=== PATIENT | male | born 1955 | race Caucasian/White ===

== ENCOUNTER 2017-10-22 23:22 | Inpatient (IN) | payer MEDICARE, OTHER ==
[~2017-10-22] VITALS: Ht 182.9 cm; Wt 67.6 kg
--- NOTE | 2017-10-22 22:45 | NUR ---
VETERAN APPEALS REVIEWER RCD PT DIRECT ADMIT FROM [facility]; PT A/O x4. NSR ON MONITOR. ELEVATED SBP. PT C/O HEADACHE 10/23. CALLED DR SWEENEY FOR ADMISSION ORDERS.
[2017-10-22 22:55] VITALS: BP 178/137
[2017-10-22 22:59] VITALS: BP 147/102
[2017-10-22 23:30] VITALS: BP 152/98
[2017-10-23] VITALS (43 sets, daily range): BP systolic 111–167; BP diastolic 40–116
[2017-10-23] MEDS ORDERED: ONDANSETRON HCL/PF 4 MG/2 ML VIAL IVP PRN
[2017-10-23] MEDS ORDERED: ACETAMINOPHEN 325 MG TABLET PO PRN
[2017-10-23] MEDS ORDERED: METO25TA6 PO (00:13)
[2017-10-23] MEDS ORDERED: CLOP75TA15 PO (00:13)
[2017-10-23] MEDS: BLOOD SUGAR DIAGNOSTIC 1 EACH STRIP IN SCH ×4 (00:35→12:17)
[2017-10-23] MEDS: MORPHINE SULFATE INJ 4 MG/ML DISP.SYRIN IV PRN ×6 (00:37→20:48)
[2017-10-23 00:40] LABS: BASOPHILS % (AUTO) 0.3 % (0.0-2.0); HEMATOCRIT 35 % (39-51); LYMPHOCYTES % (AUTO) 17.7 % (20.0-44.0); MEAN CORPUSCULAR HGB CONC 35 g/dl (31.0-36.0); MEAN CORPUSCULAR VOLUME 105 fL (80-96); MONOCYTES # (AUTO) 0.6 /CMM (0.1-1.30); MONOCYTES % (AUTO) 9.5 % (2.0-12.0); NEUTROPHILS # (AUTO) 4.2 /CMM (1.8-8.9); NEUTROPHILS % (AUTO) 71.5 % (43.0-81.0); PLATELET COUNT (AUTO) 102 /CMM (150-450); RDW COEFFICIENT OF VARIATION 14.4 (11.5-15.0); WHITE BLOOD COUNT (AUTO) 5.9 K/uL (4.3-11.0)
[2017-10-23 00:47] LABS: CALCIUM, SERUM 8.9 mg/dL (8.5-10.1); CREATININE 0.8 mg/dL (0.6-1.3); POTASSIUM 3.5 mmol/L (3.5-5.1)
[2017-10-23 00:48] LABS: INR 0.98 (0.87-1.13)
--- NOTE | 2017-10-23 01:00 | NUR ---
CRADLE SLIDE MAKER PT TAKEN FOR HEAD CT. PT REQUESTED MORPHINE FOR HEADACHE 10/23; MEDICATED ORDERED. CONTINUE TO MONITOR.
[2017-10-23 01:04] LABS: THYROID STIMULATING HORMONE 0.653 uIU/mL (0.358-3.74)
--- NOTE | 2017-10-23 04:40 | NUR ---
OIL AND GAS SPECIALIST PT C/O HEADACHE 12/23; REQUESTED MORPHINE FOR PAIN. MEDICATED ORDERED.
[2017-10-23 06:29] LABS: ABG BASE EXCESS -0.1 mmol/L; ABG OXYGEN SATURATION 95.2 % (92.0-98.5); ABG PCO2 33.8 mmHg (35.0-45.0); ABG PH 7.455 (7.350-7.450); ABG PO2 83.7 mmHg (75.0-100.0); AaDO2 104.9 mmHg; COHb 0.9 % (0.5-1.5); MetHb 0.4 % (0.0-1.5); SITE, ABG Right Radial; VENT MODE, BG NC 3L
[2017-10-23] MEDS: PANTOPRAZOLE 40 MG TABLET.DR PO SCH (07:30)
--- NOTE | 2017-10-23 07:30 | NUR ---
RECEIVED PATIENT A/OX4 DENIES SOB, DIFFICULTY BREATHING OR PAIN. NO DEFICITS NOTED. SPEECH CLEAR, STRENGTH EQUAL ALL EXTREMITIES, PUPILS BRIGIDA, NO DROOPING OF FACIAL FEATURES. PATIENT PASSED NURSING SWALLOW EVAL AND ORDER ALREADY ADDED BY DR SWEENEY. PATIENT STATES CONSTANT SLIGHT HEADACHE AND RIGHT FOOT/TOES PAIN IN WHICH MORPHINE IS BEING GIVEN PRN. PATIENT IS SHAKY POSSIBLY DUE TO WITHDRAWALS; ON SEIZURE PRECAUTIONS; WILL GIVE ATIVAN PRN. PER RN PATIENT BP IS TO REMAIN ELEVATED PER MD; WILL FOLLOW UP FOR PARAMETERS. IV SITES CLEAN DRY AND INTACT SALINE LOCKED. ALL SAFETY PRECAUTIONS IN PLACE. HOB ELEVATED. ALL NEEDS ASSESSED AND MET. WILL ROUND PRN
[2017-10-23] MEDS: LORAZEPAM INJ 2 MG/ML VIAL IV PRN ×4 (08:53→22:23)
--- NOTE | 2017-10-23 09:13 | NUR ---
SPEECH THERAPIST AT BEDSIDE FOR EVAL. DR TOUSSAINT AT BEDSIDE FOR CONSULTATION
--- NOTE | 2017-10-23 10:44 | NUR ---
PATIENT RESTING COMFORTABLY. LESS SHAKINESS NOTED. PATIENT STATES PAIN CONTROLLED WITH PRN MEDICATIONS. ALL NEEDS MET. CALL LIGHT IN REACH. SAFETY PRECAUTIONS IN PLACE
--- NOTE | 2017-10-23 16:50 | NUR ---
BELLE RODRIGUEZ AT BEDSIDE. OK TO DC ACCU CHECKS. I CALLED DR NG TO FOLLOW UP ON CONSULT. PER DR NG IF CT HERE NEGATIVE OK DC. NOTIFIED JENN[facility]ER AND THEY WILL BE IN COMMUNICATION. ATTEMPTING TO UPLOAD CT HEAD FROM [facility] AND [place]. SPOKE WITH RADIOLOGY AND ZOË CAN POSSIBLY DO THIS; THEY WILL F/U. JENNIFER AWARE OF MED RECON READY AND OF PATIENT RIGHT FOOT TOES BROKEN. FOR NOW PATIENT NON WEIGHT BEARING RIGHT LE.
[2017-10-23 17:01] LABS: APPEARANCE,URINE SL CLOUDY (CLEAR); BILIRUBIN,URINE 2+ (NEGATIVE); BLOOD, URINE NEGATIVE Ery/uL (NEGATIVE); COLOR,URINE ORANGE (YELLOW); KETONES,URINE 1+ (NEGATIVE); LEUKOCYTE ESTERASE ,URINE NEGATIVE (NEGATIVE); NITRITE, URINE NEGATIVE (NEGATIVE); PROTEIN,URINE 1+ mg/dl (NEGATIVE); UGLUCOSE TRACE mg/dL (NEGATIVE); UROBILINOGEN,URINE >=8.0 EU/dL (0.2)
[2017-10-23] MEDS: FOLIC ACID 1 MG TABLET PO SCH (17:25)
[2017-10-23 17:26] LABS: BACTERIA,URINE Rare /HPF (None Seen); RBC,URINE 0-2 /HPF (0-2); SQUAMOUS EPITHELIAL CELL,UR Few /HPF (None Seen); WBC,URINE 0-2 /HPF (0-3)
[2017-10-23 18:10] LABS: ALBUMIN 3.7 g/dL (3.4-5.0); BILIRUBIN,DIRECT 0.4 mg/dL (0.0-0.2); BILIRUBIN,TOTAL 1.5 mg/dL (0.2-1.0); TOTAL PROTEIN, SERUM 7.2 g/dL (6.4-8.2)
[2017-10-23] MEDS: Thiamine 100 MG in IV D5W 50 ML IV SCH (18:13)
--- NOTE | 2017-10-23 19:17 | NUR ---
CARE ENDORSED TO JABIER GOINS FOR LAURE. PATIENT STABLE. VS STABLE. ALL DUE MEDS GIVEN AND ALL NEEDS MET. PATIENT RESTING COMFORTABLY. SCD'S ON AND ICE TO RIGHT FOOT. PATIENT STATES PAIN CONTROLLED WITH PRN MEDICATIONS AND NON PHARM MEASURES. PRN ATIVAN GIVEN FOR ALCOHOL WITHDRAWAL/ SHAKINESS. SAFETY PRECAUTIONS IN PLACE. CALL LIGHT IN REACH.
--- NOTE | 2017-10-23 20:00 | NUR ---
BRAKE LINING FINISHER ASBESTOS NOTES RECEIVED PTS ON BED AWAKE A/OX 4 , V/S STABLE AFEBRILE , ON R/A SATING 95-98% ALL NEEDS ATTENDED TOO CALL LIGHT WITHIN REACH ALL DUE MEDS GIVEN ORDERED KEPT PTS COMFORTABLE IN BED .WILL CONTINUE TO MONITOR PTS.
[2017-10-23] MEDS: SIMVASTATIN 40 MG TABLET PO SCH (22:22)
[2017-10-24] VITALS (25 sets, daily range): BP systolic 116–168; BP diastolic 71–134
[2017-10-24] MEDS: MORPHINE SULFATE INJ 4 MG/ML DISP.SYRIN IV PRN ×6 (01:06→22:07)
[2017-10-24] MEDS: LORAZEPAM INJ 2 MG/ML VIAL IV PRN ×2 (02:52→08:36)
[2017-10-24 04:26] LABS: BASOPHILS % (AUTO) 0.3 % (0.0-2.0); EOSINOPHILS % (AUTO) 1.7 % (0.0-6.0); HEMATOCRIT 36 % (39-51); HEMOGLOBIN 12.4 g/dL (13.5-17.5); LYMPHOCYTES # (AUTO) 1.4 /CMM (0.8-4.8); LYMPHOCYTES % (AUTO) 22.4 % (20.0-44.0); MEAN CORPUSCULAR HGB CONC 35 g/dl (31.0-36.0); MEAN CORPUSCULAR VOLUME 105 fL (80-96); MONOCYTES # (AUTO) 0.6 /CMM (0.1-1.30); MONOCYTES % (AUTO) 9.5 % (2.0-12.0); NEUTROPHILS % (AUTO) 66.1 % (43.0-81.0); PLATELET COUNT (AUTO) 98 /CMM (150-450); RDW COEFFICIENT OF VARIATION 14.3 (11.5-15.0); RED BLOOD CELL COUNT(AUTO) 3.42 MIL/uL (4.5-6.0); WHITE BLOOD COUNT (AUTO) 6.1 K/uL (4.3-11.0)
[2017-10-24 04:41] LABS: CALCIUM, SERUM 9.2 mg/dL (8.5-10.1); CREATININE 0.7 mg/dL (0.6-1.3); POTASSIUM 3.8 mmol/L (3.5-5.1)
--- NOTE | 2017-10-24 05:51 | NUR ---
agriculture instructor notes pts in bed awake a/ox4 no sob no distress noted on sr -st on the monitor , sating 96-98% on the monitor , all needs attended too call light within reach kept pts comfortable,jefferson endorse to rn day shift for continuity of care, no significance change noted.
--- NOTE | 2017-10-24 07:30 | NUR ---
RN NOTES RECEIVED PATIENT IN BED ALERT, AWAKE, ORIENTED X4 WITH BREATHING NORMAL, EVEN AND UNLABORED. NO SOB NOTED. NO ACUTE DISTRESS NOTED. TELE MONITOR REVEALS SR, HR=96. IV LFA IS PATENT AND INTACT, NO INFILTRATION NOTED. BOWEL SOUND PRESENT. PULSES PRESENT. SAFETY MEASURE OBSERVED. CALL LIGHT WITH IN REACH. WILL CONT TO MONITOR.
[2017-10-24] MEDS: PANTOPRAZOLE 40 MG TABLET.DR PO SCH (08:36)
[2017-10-24] MEDS: FOLIC ACID 1 MG TABLET PO SCH (08:36)
[2017-10-24] MEDS: Thiamine 100 MG in IV D5W 50 ML IV SCH (17:07)
--- NOTE | 2017-10-24 19:18 | NUR ---
RN NOTES PATIENT ENDORSED TO NEXT SHIFT IN STABLE CONDITION FOR CONTINUITY OF CARE.
--- NOTE | 2017-10-24 19:20 | NUR ---
ADVERTISER OPENING NOTES RECEIVED REPORT FROM HARSHAD EUGENE. PATIENT A/A/O X4, ABLE TO VERBALIZE NEEDS. BREATHING EVEN & UNLABORED & TOLERATING ROOM AIR. SATING @ 95%. ON TELE W/ SINUS RHYTHM, HR 90S. NO RESPIRATORY OR CARDIAC DISTRESS NOTED. DENIES ANY CHEST PAIN OR DISCOMFORT. RIGHT FOREARM IV #22 & LEFT FOREARM IV #20 INTACT & PATENT W/ DRESSING CDI, SALINE LOCKED. PATIENT ABLE TO USE URINAL. C/O HEADACHE W/ PAIN OF 8 OUT OF 10. PAIN MED TO BE GIVEN. DENIES ANY BLURRY VISION OR LIGHTHEADEDNESS. DENIES N/V/D. SAFETY MEASURES IN PLACE & CALL LIGHT WITHIN REACH. INSTRUCTED TO CALL FOR ASSISTANCE. WILL CONTINUE TO MONITOR CLOSELY.
[2017-10-24] MEDS: hydrALAZINE HCL IV 20 MG VIAL IV PRN (21:01)
[2017-10-24] MEDS: SIMVASTATIN 40 MG TABLET PO SCH (21:48)
--- NOTE | 2017-10-24 23:38 | NUR ---
TELE-TD/SUPERINTENDENT OPERATIONS DIVISION RECEIVED PT ACCOMPANIED BY ICU STAFF. REPORT TAKEN FROM MELANIE EUGENE. WILL CONTINUE TO MONITOR.
--- NOTE | 2017-10-24 23:40 | NUR ---
CUSTOMER SUPPORT COORDINATOR NOTES PATIENT TRANSFERRED TO [facility] ROOM 106 IN STABLE CONDITION. BEDSIDE REPORT GIVEN TO MOI HOWARD FOR LAURE.
[2017-10-25] VITALS: BP 150/108
[2017-10-25] MEDS: MORPHINE SULFATE INJ 4 MG/ML DISP.SYRIN IV PRN ×4 (02:26→22:10)
[2017-10-25 04:00] VITALS: BP 159/109
[2017-10-25 06:30] LABS: BASOPHILS % (AUTO) 0.2 % (0.0-2.0); HEMATOCRIT 36 % (39-51); HEMOGLOBIN 12.6 g/dL (13.5-17.5); LYMPHOCYTES # (AUTO) 1.1 /CMM (0.8-4.8); LYMPHOCYTES % (AUTO) 17.5 % (20.0-44.0); MEAN CORPUSCULAR HGB CONC 35 g/dl (31.0-36.0); MEAN CORPUSCULAR VOLUME 106 fL (80-96); MONOCYTES # (AUTO) 0.5 /CMM (0.1-1.30); MONOCYTES % (AUTO) 7.8 % (2.0-12.0); NEUTROPHILS # (AUTO) 4.7 /CMM (1.8-8.9); NEUTROPHILS % (AUTO) 72.5 % (43.0-81.0); PLATELET COUNT (AUTO) 101 /CMM (150-450); RDW COEFFICIENT OF VARIATION 14.5 (11.5-15.0); RED BLOOD CELL COUNT(AUTO) 3.44 MIL/uL (4.5-6.0); WHITE BLOOD COUNT (AUTO) 6.4 K/uL (4.3-11.0)
--- NOTE | 2017-10-25 07:26 | NUR ---
[facility] RN NOTE RECEIVED PATIENT IN BED , RESTING COMFORTABLY AT THIS TIME , ON TELE MONITOR SR HR 86 , BED IN LOWEST AND LOCKED POSITION NO SOB AT THIS TIME, CALL LIGHT WITHIN REACH ALL NEEDS ATTENDED
[2017-10-25 07:27] LABS: CALCIUM, SERUM 9.5 mg/dL (8.5-10.1); CREATININE 0.8 mg/dL (0.6-1.3); POTASSIUM 3.7 mmol/L (3.5-5.1)
[2017-10-25 07:54] LABS: EOSINOPHILS % (MANUAL) 1 % (0-4); LYMPHOCYTES % (MANUAL) 16 % (16-48); MONOCYTES % (MANUAL) 9 % (0-11.0); NEUTROPHILS % (MANUAL) 74 (42-76)
[2017-10-25 08:00] VITALS: BP 156/99
[2017-10-25] MEDS: FOLIC ACID 1 MG TABLET PO SCH (08:55)
[2017-10-25] MEDS: PANTOPRAZOLE 40 MG TABLET.DR PO SCH (08:55)
[2017-10-25] MEDS: THIAMINE HCL 100 MG TABLET PO SCH (11:23)
[2017-10-25 12:00] VITALS: BP 148/96
--- NOTE | 2017-10-25 12:30 | NUR ---
[facility] RN NOTE ABLE TO FEED SELF ALL NEEDS ATTENDED , NO C\O HEADACHE AT THIS TIME WILL CONT TO MONITOR CLOSELY
--- NOTE | 2017-10-25 14:57 | NUR ---
[facility] RN NOTE ABLE TO GO TO BR USING A CANE ,STAND BY ASSISTANCE PROVIDED , KEEP CLEAN DRY , NOT IN ACUTE DISTRESS
--- NOTE | 2017-10-25 15:50 | NUR ---
GURPREET RN NOTE SPOKE WITH BELLE EUGENE BALLOON ARTIST NOTIFIED THAT HDL 77, PER HOSPITAL PROTOCOL NEEDS TO ORDER STATINS STATED TTAT WILL CHECK IT OUT Addendum: 10/25/17 at 1556 by CHER CARMONA RN WRONG STATEMENT ERROR
[2017-10-25 16:00] VITALS: BP 158/100
--- NOTE | 2017-10-25 17:57 | NUR ---
[facility] RN NOTE PT AT BEDSIDE AMBULATED PATIENT
--- NOTE | 2017-10-25 18:50 | NUR ---
[facility] RN NOTE C\O HEADACHE 7\10 ,MORPHINE 2MG IVP GIVEN ,BP 148/96 ,SAT 97%
[2017-10-25 20:00] VITALS: BP 145/103
--- NOTE | 2017-10-25 20:00 | NUR ---
Received report patient A/O x 4.Moves all extremities.VS taken and recorded.Tele SR no ectopies noted. Respiration even and unlabored.Denies any discomfort at present.Call light at bedside instructed to call for assistance.Verbalized understanding.
[2017-10-25] MEDS: SIMVASTATIN 40 MG TABLET PO SCH (21:53)
[2017-10-25] MEDS: hydrALAZINE HCL IV 20 MG VIAL IV PRN (22:09)
[2017-10-26] VITALS: BP 148/99
[2017-10-26] MEDS: MORPHINE SULFATE INJ 4 MG/ML DISP.SYRIN IV PRN ×2 (02:07→06:28)
[2017-10-26 04:00] VITALS: BP_SYST 137; BP_SYST 153; BP_DIAS 86; BP_DIAS 98
[2017-10-26 06:18] LABS: BASOPHILS % (AUTO) 0.2 % (0.0-2.0); EOSINOPHILS % (AUTO) 1.9 % (0.0-6.0); HEMATOCRIT 38 % (39-51); HEMOGLOBIN 12.9 g/dL (13.5-17.5); LYMPHOCYTES # (AUTO) 1.2 /CMM (0.8-4.8); LYMPHOCYTES % (AUTO) 20.9 % (20.0-44.0); MEAN CORPUSCULAR HGB CONC 34 g/dl (31.0-36.0); MEAN CORPUSCULAR VOLUME 106 fL (80-96); MONOCYTES # (AUTO) 0.6 /CMM (0.1-1.30); MONOCYTES % (AUTO) 9.6 % (2.0-12.0); NEUTROPHILS % (AUTO) 67.4 % (43.0-81.0); PLATELET COUNT (AUTO) 117 /CMM (150-450); RDW COEFFICIENT OF VARIATION 13.9 (11.5-15.0); RED BLOOD CELL COUNT(AUTO) 3.58 MIL/uL (4.5-6.0); WHITE BLOOD COUNT (AUTO) 5.9 K/uL (4.3-11.0)
--- NOTE | 2017-10-26 06:30 | NUR ---
Patient complaints of headache 3X during the shift and was medicated with morphine as PRN. No changes on neuro status.VS stable.SR/ST.Safety measures maintained.All needs attended.
[2017-10-26 06:33] LABS: CALCIUM, SERUM 9.8 mg/dL (8.5-10.1); CREATININE 0.7 mg/dL (0.6-1.3); POTASSIUM 4.2 mmol/L (3.5-5.1)
--- NOTE | 2017-10-26 07:30 | NUR ---
[facility] RN AM NOTE RECEIVED PATIENT IN BED , RESTING COMFORTABLY AT THIS TIME , ON RA, NO SOB, ON TELE MONITOR SR HR 96 , RFA g22, FLUSHES WELL, SITE CLEAR, REGULAR DIET, DENIES PAIN , USES URINAL, NEURO CHECK DONE, BED IN LOWEST AND LOCKED POSITION, CALL LIGHT WITHIN REACH WILL CONTINUE TO MONITOR.
[2017-10-26 08:00] VITALS: BP 135/96
[2017-10-26] MEDS: FOLIC ACID 1 MG TABLET PO SCH (08:40)
[2017-10-26] MEDS: PANTOPRAZOLE 40 MG TABLET.DR PO SCH (08:40)
[2017-10-26] MEDS: THIAMINE HCL 100 MG TABLET PO SCH (08:40)
--- NOTE | 2017-10-26 09:30 | NUR ---
[facility] RN NOTES ADMINISTERED DUE MEDS.
[2017-10-26 10:12] LABS: LYMPHOCYTES % (MANUAL) 17 % (16-48); MONOCYTES % (MANUAL) 7 % (0-11.0); NEUTROPHILS % (MANUAL) 76 (42-76)
[2017-10-26] MEDS ORDERED: MORPHINE SULFATE INJ 4 MG/ML DISP.SYRIN IV PRN (11:00)
[2017-10-26] MEDS: HYDROCODONE/APAP 10/325MG 1 EA TABLET PO PRN ×3 (11:12→19:51)
[2017-10-26 12:00] VITALS: BP 127/98
[2017-10-26 16:00] VITALS: BP 121/84
--- NOTE | 2017-10-26 19:53 | NUR ---
[facility] RN NOTE PT IN BED AWAKE. A/O X 4, NO SOB NOTED. C/O PAIN LT LEG, AND TEMPORAL /10, NORCO 10/325 MG PO GIVEN. ON TELE SR HR 96. RFA #22 G S/L INTACT AND PATENT. SIDE RAILS UP X 2 AND CALL LIGHT WITHIN REACH. VSS. CONTINUE TO MONITOR HIM. CANE AT BED SIDE. REMINDED PT TO USE CALL LIGHT IF NEEDED ANY HELP.
[2017-10-26 20:00] VITALS: BP 126/88
[2017-10-26] MEDS: SIMVASTATIN 40 MG TABLET PO SCH (21:42)
[2017-10-27] VITALS: BP 126/92
[2017-10-27] MEDS: HYDROCODONE/APAP 5/325MG 1 EACH TABLET PO PRN ×2 (00:24→05:00)
[2017-10-27 04:00] VITALS: BP 136/87
--- NOTE | 2017-10-27 06:20 | NUR ---
[facility] RN NOTE PT IN BED AWAKE. NO DISTRESS OR DISCOMFORT NOTED. PAIN MEDS GIVEN MULTIPLE TIMES DUE TO PAIN IN LT LOWER EXT'S. NO CHANGES IN NEURO DURING THE SHIFT. ALL NEEDS ATTENDED. SIDE RAILS UP X 2 AND CALL LIGHT WITHIN REACH. WILL ENDORSE TO DAY SHIFT NURSE FOR CONTINUE TO CARE.
[2017-10-27 06:43] LABS: BASOPHILS % (AUTO) 0.2 % (0.0-2.0); EOSINOPHILS % (AUTO) 3.1 % (0.0-6.0); HEMATOCRIT 34 % (39-51); HEMOGLOBIN 11.7 g/dL (13.5-17.5); LYMPHOCYTES # (AUTO) 1.2 /CMM (0.8-4.8); LYMPHOCYTES % (AUTO) 25.6 % (20.0-44.0); MEAN CORPUSCULAR HGB CONC 35 g/dl (31.0-36.0); MEAN CORPUSCULAR VOLUME 106 fL (80-96); MONOCYTES # (AUTO) 0.7 /CMM (0.1-1.30); MONOCYTES % (AUTO) 14.1 % (2.0-12.0); NEUTROPHILS # (AUTO) 2.6 /CMM (1.8-8.9); PLATELET COUNT (AUTO) 126 /CMM (150-450); RDW COEFFICIENT OF VARIATION 13.8 (11.5-15.0); RED BLOOD CELL COUNT(AUTO) 3.19 MIL/uL (4.5-6.0); WHITE BLOOD COUNT (AUTO) 4.6 K/uL (4.3-11.0)
[2017-10-27 06:56] LABS: CALCIUM, SERUM 9.2 mg/dL (8.5-10.1); CREATININE 0.8 mg/dL (0.6-1.3); POTASSIUM 3.9 mmol/L (3.5-5.1)
[2017-10-27] MEDS: PANTOPRAZOLE 40 MG TABLET.DR PO SCH (07:37)
--- NOTE | 2017-10-27 07:45 | NUR ---
RN NOTE RECEIVED PATIENT IN BED, ALERT AND ORIENTED X4, HE IS ABLE TO MAKE THINGS KNOWN AND VERBALIZE NEEDS. PATIENT IS ABLE TO AMBULATE WITH ASSIST AND ASSISTIVE DEVICE. BREATHING EVEN AND UNLABORED WITH NO DISTRESS NOTED. ON STEWARD/STEWARDESS SMOKE ROOM OF SINUS RHYTHM HR OF 76, RIGHT FA IV SITE INTACT AND PATENT. DENIES ANY PAIN AT THIS TIME. BED LOCK AND LOW POSITION. PLACED CALL LIGHT WITHIN REACH. WILL CONTINUE TO MONITOR.
[2017-10-27 08:00] VITALS: BP 143/95
[2017-10-27] MEDS: FOLIC ACID 1 MG TABLET PO SCH (08:32)
[2017-10-27] MEDS: THIAMINE HCL 100 MG TABLET PO SCH (08:32)
[2017-10-27] MEDS: HYDROCODONE/APAP 10/325MG 1 EA TABLET PO PRN ×3 (10:00→22:48)
[2017-10-27 10:38] LABS: EOSINOPHILS % (MANUAL) 1 % (0-4); LYMPHOCYTES % (MANUAL) 30 % (16-48); MONOCYTES % (MANUAL) 7 % (0-11.0); NEUTROPHILS % (MANUAL) 62 (42-76)
[2017-10-27 12:00] VITALS: BP 152/104
[2017-10-27] MEDS: hydrALAZINE HCL IV 20 MG VIAL IV PRN (15:42)
--- NOTE | 2017-10-27 15:45 | NUR ---
RN NOTE PATIENT NOTED WITH ELEVATED B/P 162/104, PRN HYDRALAZINE GIVEN. WILL CONTINUE MONITOR AND RECHECK B/P
[2017-10-27 16:00] VITALS: BP 158/98
--- NOTE | 2017-10-27 16:15 | NUR ---
RN NOTE RECHECKED PATIENT B/P 133/72, PRN HYDRALAZINE WAS EFFECTIVE, WILL CONTINUE TO MONITOR.
[2017-10-27 20:00] VITALS: BP 148/91
[2017-10-27] MEDS: SIMVASTATIN 40 MG TABLET PO SCH (22:06)
[2017-10-28] VITALS: BP 124/87
[2017-10-28 00:07] VITALS: BP 124/87
[2017-10-28 04:00] VITALS: BP 125/86
[2017-10-28] MEDS: HYDROCODONE/APAP 10/325MG 1 EA TABLET PO PRN ×4 (04:09→16:36)
[2017-10-28 07:04] LABS: CALCIUM, SERUM 9.3 mg/dL (8.5-10.1); CREATININE 0.7 mg/dL (0.6-1.3); POTASSIUM 4.6 mmol/L (3.5-5.1)
--- NOTE | 2017-10-28 07:10 | NUR ---
RN INITIAL NOTES: Rec'd pt awake on bed, A/O x 3-4, c/o headache 5/10, denies any weakness. On room air, no SOB. On telemonitor, ST w/ HR 100 bpm. Has RFA G22, SL, flushing well, no s/sx of infection/infiltration noted. Provided comfort & safety measures (ambulating aid placed w/in reach). Reminded to use FWW/cane when ambulating, verbalized understanding. Bed kept low & in locked pos. Call light placed w/in reach. Will continue to monitor & attend pt needs.
[2017-10-28 07:14] LABS: BASOPHILS % (AUTO) 0.3 % (0.0-2.0); EOSINOPHILS % (AUTO) 2.5 % (0.0-6.0); HEMATOCRIT 34 % (39-51); LYMPHOCYTES # (AUTO) 1.1 /CMM (0.8-4.8); LYMPHOCYTES % (AUTO) 20.5 % (20.0-44.0); MEAN CORPUSCULAR HGB CONC 35 g/dl (31.0-36.0); MEAN CORPUSCULAR VOLUME 105 fL (80-96); MONOCYTES % (AUTO) 17.2 % (2.0-12.0); NEUTROPHILS # (AUTO) 3.3 /CMM (1.8-8.9); NEUTROPHILS % (AUTO) 59.5 % (43.0-81.0); PLATELET COUNT (AUTO) 155 /CMM (150-450); RDW COEFFICIENT OF VARIATION 14.1 (11.5-15.0); RED BLOOD CELL COUNT(AUTO) 3.28 MIL/uL (4.5-6.0); WHITE BLOOD COUNT (AUTO) 5.5 K/uL (4.3-11.0)
[2017-10-28] MEDS: PANTOPRAZOLE 40 MG TABLET.DR PO SCH (07:59)
[2017-10-28 08:00] VITALS: BP 141/99
[2017-10-28] MEDS: THIAMINE HCL 100 MG TABLET PO SCH (08:22)
[2017-10-28] MEDS: FOLIC ACID 1 MG TABLET PO SCH (08:22)
[2017-10-28 10:11] LABS: EOSINOPHILS % (MANUAL) 3 % (0-4); LYMPHOCYTES % (MANUAL) 28 % (16-48); MONOCYTES % (MANUAL) 9 % (0-11.0); NEUTROPHILS % (MANUAL) 60 (42-76)
--- NOTE | 2017-10-28 12:30 | NUR ---
RN NOTES: Pt requesting to smoke outside facility. Consent signed by pt re: smoking. Health teaching provided to the pt regarding smoking w/ verbalization of understanding.
--- NOTE | 2017-10-28 13:40 | NUR ---
RN NOTES: CM made aware re: pt request for DCP. Addendum: 10/28/17 at 1544 by SOFI BARNETT RN SULEIMAN gambino/ the pt re: DCP.
[2017-10-28] MEDS ORDERED: SIMV40TA5 PO (15:22)
[2017-10-28] MEDS ORDERED: FOLI1TAB16 PO (15:22)
--- NOTE | 2017-10-28 15:30 | NUR ---
RN NOTES: Pt seen & examined by DEAN Marinelli w/ DC orders.
[2017-10-28 16:00] VITALS: BP 135/94
[2017-10-28] MEDS: HYDROCODONE/APAP 5/325MG 1 EACH TABLET PO PRN (17:57)
--- NOTE | 2017-10-28 18:39 | NUR ---
ASSOCIATE ACCOUNTANT NOTES: Pt DC'd to home, self-care. DC documents explained & provided to the pt w/ verbalization of understanding. RX given. IV line access removed, pressure dressing applied, no infection noted. Health teaching provided re: stroke, smoking, alcohol use, and fall precaution. All DC documents signed by pt. Per pt, all belongings w/ him. Pain was addressed & managed. No concern identified at the time of DC. Pt left the unit in stable condition via wheelchair accompanied by FURNITURE DIPPER. Pt picked up by pvt transportation arranged by CM.
== END 2017-10-28 18:38 | disposition home or self-care (01) | DRG 86 ==
LOC: ICU 23:22 → TELE-TD 10-24 23:30 → TELE1 10-27 11:12 → MEDSG1 10-28 10:48
PROVIDERS: ADMIT Hospitalist
DX: S06.5X0A Traumatic subdural hemorrhage without loss of consciousness, initial encounter (principal); F10.239 Alcohol dependence with withdrawal, unspecified; D69.6 Thrombocytopenia, unspecified; M84.47 Pathological fracture, ankle, foot and toes; D53.9 Nutritional anemia, unspecified; E53.8 Deficiency of other specified B group vitamins; E78.5 Hyperlipidemia, unspecified; W18.30XA Fall on same level, unspecified, initial encounter; Y92.89 Other specified places as the place of occurrence of the external cause; F17.210 Nicotine dependence, cigarettes, uncomplicated; I10 Essential (primary) hypertension; Y90.8 Blood alcohol level of 240 mg/100 ml or more; R29.6 Repeated falls; F17.200 Nicotine dependence, unspecified, uncomplicated; Z86.73 Personal history of transient ischemic attack (TIA), and cerebral infarction without residual deficits; Z79.899 Other long term (current) drug therapy; M19.90 Unspecified osteoarthritis, unspecified site; Z91.81 History of falling; T84.01 Broken internal joint prosthesis; Y83.9 Surgical procedure, unspecified as the cause of abnormal reaction of the patient, or of later complication, without mention of misadventure at the time of the procedure
CPT/HCPCS: 36415; 36600; 70450-TC; 73630-TC; 80048-TC; 80061-TC; 80076-TC; 80305; 81000-TC; 82746; 82962-TC; 84443-TC; 85025-TC; 85385-TC; 85652-TC; 85730-TC; 87081-TC; 92611-TC; 97110-TC; 97112-TC; 97116-TC; 97530-TC; A4606; J0360; J2060; J2270; J3411; J7050; J7060; Z7610